=== PATIENT | female | born 1965 | race Caucasian/White ===

== ENCOUNTER 2016-03-03 19:30 | Outpatient (CLI) | payer MEDICAID | END 2016-03-03 19:31 | disposition home or self-care (01) | DX: G47.61 Periodic limb movement disorder (principal) ==

== ENCOUNTER 2016-03-30 14:12 | Outpatient (CLI) | payer MEDICAID | END 2016-03-30 14:13 | disposition home or self-care (01) | DX: G47.00 Insomnia, unspecified (principal); G47.61 Periodic limb movement disorder ==